=== PATIENT | female | born 1945 | race Caucasian/White ===

== ENCOUNTER 2016-10-31 | Outpatient (CLI) | payer MEDICARE, OTHER | END 2016-10-31 15:23 | disposition short-term general hospital (02) | DX: R53.83 Other fatigue (principal) | CPT/HCPCS: A0425; A0427 ==

== ENCOUNTER 2017-05-03 10:55 | Outpatient (CLI) | payer MEDICARE, OTHER | END 2017-05-03 10:56 | disposition short-term general hospital (02) | LOC: EMS 10:55 | PROVIDERS: ATTEND Surgery | DX: R53.83 Other fatigue (principal); R41.0 Disorientation, unspecified | CPT/HCPCS: A0425; A0429 ==

== ENCOUNTER 2017-06-03 08:00 | Outpatient (CLI) | payer MEDICARE, OTHER | END 2017-06-03 23:59 | disposition home or self-care (01) | LOC: LAB.R 08:00 | PROVIDERS: ATTEND Internal Medicine | DX: L97.811 Non-pressure chronic ulcer of other part of right lower leg limited to breakdown of skin (principal) | CPT/HCPCS: 87070; 87077; 87205 ==

== ENCOUNTER 2017-08-26 14:16 | Outpatient (CLI) | payer MEDICARE, OTHER | END 2017-08-26 14:17 | disposition home or self-care (01) | LOC: SC 14:16 | PROVIDERS: ATTEND Internal Medicine Pulmonary Disease | DX: G47.10 Hypersomnia, unspecified (principal); G47.8 Other sleep disorders; R06.83 Snoring | CPT/HCPCS: 99203; G0463; 99212 ==

== ENCOUNTER 2017-11-30 20:25 | Outpatient (CLI) | payer MEDICARE, OTHER | END 2017-11-30 20:26 | disposition home or self-care (01) | LOC: SC 20:25 | PROVIDERS: ATTEND Internal Medicine Pulmonary Disease | DX: G47.33 Obstructive sleep apnea (adult) (pediatric) (principal) | CPT/HCPCS: 95810 ==

== ENCOUNTER 2017-12-13 11:28 | Outpatient (CLI) | payer MEDICARE, OTHER | END 2017-12-13 11:29 | disposition short-term general hospital (02) | LOC: EMS 11:28 | PROVIDERS: ATTEND Surgery | DX: R53.1 Weakness (principal); W18.39XA Other fall on same level, initial encounter; Y92.002 Bathroom of unspecified non-institutional (private) residence as the place of occurrence of the external cause | CPT/HCPCS: A0425; A0429 ==

== ENCOUNTER 2017-12-30 14:34 | Outpatient (CLI) | payer MEDICARE, OTHER | END 2017-12-30 14:35 | disposition home or self-care (01) | LOC: SC 14:34 | PROVIDERS: ATTEND Nurse Practitioner Family | DX: G47.33 Obstructive sleep apnea (adult) (pediatric) (principal) | CPT/HCPCS: 99214; G0463; 99212 ==

== ENCOUNTER 2018-03-04 13:41 | Outpatient (CLI) | payer MEDICARE, OTHER | END 2018-03-04 13:42 | disposition home or self-care (01) | LOC: SC 13:41 | PROVIDERS: ATTEND Nurse Practitioner Family | DX: G47.33 Obstructive sleep apnea (adult) (pediatric) (principal) | CPT/HCPCS: 99214 ==

== ENCOUNTER 2018-03-24 12:12 | Outpatient (CLI) | payer MEDICARE, OTHER ==
--- NOTE | 2018-03-25 10:51 | Mammography Report ---
SCREENING LEFT MAMMOGRAM: 03/24/2018 HISTORY: Status post right mastectomy and chemotherapy. COMPARISON: 08/06/2016, 07/05/2014 and 06/17/2014. TECHNIQUE: Unilateral left CC and MLO projections. FINDINGS: There is scattered fibroglandular density. Extensive benign appearing calcifications as before. No new dominant mass, architectural distortion, skin thickening or interval change. IMPRESSION: NEGATIVE. BI-RADS CATEGORY 1 - NEGATIVE. SUGGEST RETURN TO ROUTINE SCREENING IN 12 MONTHS. STANDARD QUALIFYING STATEMENTS: 1. This examination was reviewed with the aid of Computer-Aided Detection (CAD). 2. A negative or benign imaging report should not delay biopsy if clinically suspicious findings are present. Consider surgical consultation if warranted. More than 5% of cancers are not identified by imaging. 3. Dense breasts may obscure an underlying neoplasm. TD: 03/25/2018 09:28
== END 2018-03-24 12:13 | disposition home or self-care (01) ==
LOC: DI 12:12
PROVIDERS: ATTEND Internal Medicine Hematology & Oncology
DX: Z12.31 Encounter for screening mammogram for malignant neoplasm of breast (principal); Z90.11 Acquired absence of right breast and nipple

== ENCOUNTER 2018-04-14 13:29 | Outpatient (CLI) | payer MEDICARE, OTHER | END 2018-04-14 13:30 | disposition home or self-care (01) | LOC: SC 13:29 | PROVIDERS: ATTEND Nurse Practitioner Family | DX: G47.33 Obstructive sleep apnea (adult) (pediatric) (principal) | CPT/HCPCS: 99214; G0463; 99212 ==

== ENCOUNTER 2018-05-12 13:15 | Outpatient (CLI) | payer MEDICARE, OTHER | END 2018-05-12 13:16 | disposition home or self-care (01) | LOC: SC 13:15 | PROVIDERS: ATTEND Nurse Practitioner Family | DX: G47.33 Obstructive sleep apnea (adult) (pediatric) (principal); R03.1 Nonspecific low blood-pressure reading | CPT/HCPCS: 99214; G0463; 99212 ==

== ENCOUNTER 2018-10-06 08:49 | Outpatient (CLI) | payer MEDICARE, OTHER | END 2018-10-06 08:50 | disposition short-term general hospital (02) | LOC: EMS 08:49 | PROVIDERS: ATTEND Surgery | DX: R53.1 Weakness (principal); R10.9 Unspecified abdominal pain | CPT/HCPCS: A0425; A0427 ==

== ENCOUNTER 2018-11-20 13:11 | Outpatient (CLI) | payer MEDICARE, OTHER ==
--- NOTE | 2018-11-24 08:50 | XRAY Report ---
Reason: PNA Procedure Date: 11/20/2018 Accession Number: [id number] / [id number] Procedure: XRN - Chest 2 View X-Ray CPT Code: 16427 FULL RESULT: EXAM: CHEST RADIOGRAPHY EXAM DATE: 11/20/2018 01:37 PM. CLINICAL HISTORY: Pneumonia. COMPARISON: Chest 2 views 08/09/2014. TECHNIQUE: 2 views. FINDINGS: Lungs/Pleura: No focal opacities evident. No pleural effusion. No pneumothorax. Normal volumes. Mediastinum: Heart and mediastinal contours are notable for aortic calcification. Median sternotomy wires and surgical clips consistent with CABG is seen. Other: None. IMPRESSION: No acute cardiopulmonary abnormality demonstrated. RADIA
== END 2018-11-20 13:12 | disposition home or self-care (01) ==
LOC: DI.N 13:11
PROVIDERS: ATTEND Internal Medicine
DX: J18.9 Pneumonia, unspecified organism (principal)
CPT/HCPCS: 71046

== ENCOUNTER 2020-02-02 15:34 | Outpatient (CLI) | payer MEDICARE, OTHER ==
--- NOTE | 2020-02-02 15:39 | CONSULTATION NOTE ---
Palliative Care Consultation - Referral Referring Provider: Dr. Ubaldo Sofia Time of Visit: [id number] Referral setting: Home Referral Reason: CHF/frequent UTIs/Debility/Advanced care planning - Information Sources Records reviewed: Previous records reviewed History/Review of Systems obtained from: Patient, Family (spouse, Channing ("GINGER") present) Exam limitations: No limitations - History of Present Illness Brief History of Present Illness: Is a 74-year-old woman who is seen in evaluation today for initial palliative care consultation within her home with her spouse, GINGER present. The patient has a significant cardiac history including coronary artery disease, congestive heart failure, and hypertension. She continues on HCTZ daily for diuretic maintenance and has torsemide as needed based on symptoms of fluid overload. The patient and her report that her swelling to her lower extremities has been greatly improved. She sometimes gets some swelling in the evenings. She and her spouse have been limiting salt in their diet and this has assisted with controlling her LE edema. 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 Both the patient her spouse reports that she has "bad knees." She has no pain at rest what will develop a dull ache in her knees during ambulation rating 4/10 which she reports is tolerable. She will take intermittently hydrocodone/acetaminophen if needed for severe pain which is something she has been on for "years." She previously had been on baclofen for muscle spasms for over 10 years but developed increasing weakness that resulted in the patient s eeking medical attention. Her spouse reports that prior to her admission she was falling asleep standing on her feet and had confusion like she was "walking in a coma." On an admission in 2018 she developed acute metabolic encephalopathy with acute kidney injury believed to be due to her longtime use of baclofen which was stopped. Presently the patient will use chlorzoxazone if needed for muscle spasms and this has now been a rare occurrence. The patient had also been on Cymbalta for several years and she has slowly been tapered off of the medication which was used for pain and depression symptoms. She has been off the medication for approximately 1 to 2 months and her spouse reports that she has been in better spirits and in better mood than she has been in the last 6 to 7 years. The patient is cracking jokes and appears to be happier. The patient has a longstanding history of diabetes mellitus. She takes Novolin 70/30 44 units twice daily her new novolin 4 times daily as needed based on a sliding scale. The patient is very fearful of taking too much insulin as she is afraid that she will not recognize having any lows. Both she and her have been working on their diet. The biggest concern presently is the patient's inability to stand for a long length of time due to weakness. She begins to feel like her legs are going to give out on her. She is able to ambulate short distances within the home. She feels like overall she has no energy. Her attributes this lack of energy and her being "worn out all day" to her recent urinary tract infections that were back to back. Her last urinary tract infection on 01/11 grew E. coli greater than 100,000 cfu/mL. Her spouse is extremely concerned that she will get a another urinary tract infection due to her hygiene practices. She is not able to provide adequate hygiene care especially to her helena-area due to her obesity, weakness, incontinence, and overall strength. Her spouse is looking for additi onal services to assist with this care. He has started the patient on cranberry supplementation for UTI prophylaxis. Of note, the patient had a recent elevated TSH with adjustments made to her levothyroxine with adequate response with lowering of her TSH but the patient did not notice any benefit in her overall fatigue from this adjustment. 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: Breast cancer (Right s/p chemotherapy and mastectomy) : reports: Incontinence, Other (CKD stage 3) Psych: reports: Depression Musculoskeletal: reports: Osteoarthritis Derm: reports: Herpes zoster (2017) - Past Surgical History General: reports: Cholecystectomy /RIVET TAPPING MACHINE OPERATOR: reports: Hysterectomy, Mastectomy (right) Cardiovascular: reports: Other (Watchman Mesh Filter in Heart; Triple bypass) HEENT: reports: Other (Thyroidectomy) - Substance History Use: Uses substance without health or social issues: NONE (Former smoker for 40 years) Social History - Living Situation Living arrangement: At home Living Situation: With spouse/s.o. Support System: The patient grew up in [place]. She and her have been for 56 years and had 3 children together. One son and 2 daughters. Their son is . They have 1 daughter who lives locally and across the street, [place], and their other daughter continues to reside in [place] and is a registered nurse. 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 She found great enjoyment and for filament in her role as a nurse. The patient and her relocated to [facility] approximately 5 years ago when the house across the street from the daughter became up for sale. AC, continues to work part-time but is presently on a leave of absence to care for the patient during this coronavirus pandemic. AC is the patient's primary caregiver and over the last 3 years the patient's needs have increased. 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 They presently have 1 dog twinkle who resides with them. Family History - Family History Family History: Mother: , Father: , Sister: Diabetes, Type 2 Family History Comment/Other: Sister has had amputation 2/2 DM type II Medications/Allergies - Medications Home Medications: Ambulatory Orders Medication Instructions Recorded Confirmed Aspirin [Aspirin EC] 81 mg PO DAILY 02/02/20 02/02/20 Atorvastatin Calcium 40 mg PO QPM 02/02/20 02/02/20 Calcium Carbonate/Vitamin D3 1 cap PO BID 02/02/20 02/02/20 [Calcium 600-Vit D3 500 Softgel] Carvedilol [Coreg] 1 tab PO BID 02/02/20 02/02/20 Chlorzoxazone 250 - 500 mg PO TID PRN 02/02/20 02/02/20 Clopidogrel [Plavix] 75 mg PO DAILY 02/02/20 02/02/20 Complex Super B 1 cap PO DAILY 02/02/20 Cranberry 500 mg PO BID 02/02/20 02/02/20 Dmannose 2 g PO DAILY 02/02/20 Docusate Sodium 100 mg PO DAILY 02/02/20 02/02/20 Ferrous Sulfate 325 mg PO BID 02/02/20 02/02/20 Fluticasone [Flonase] 1 spray SPENCER BID 02/02/20 02/02/20 HYDROcodone/ACET 10/325 [Seale 10 1 tab PO Q6H PRN 02/02/20 02/02/20 mg/325 mg] Insulin NPH Hum/Reg Insulin Hm 44 units SQ BID 02/02/20 02/02/20 [Novolin 70-30 Flexpen] Insulin Regular Human [NovoLIN R] PRN MDD per SSI 02/02/20 Isosorbide Mononitrate ER [Imdur] 30 mg PO DAILY 02/02/20 02/02/20 Levothyroxine Sodium 2 tab PO .MONTUESWEDFRISAT 02/02/20 02/02/20 Levothyroxine [Synthroid] 3 tab PO .THURSSUNDAY 02/02/20 02/02/20 Losartan Potassium 25 mg PO DAILY 02/02/20 02/02/20 Nitroglycerin [Nitrostat] PRN 02/02/20 [place] 3 Fish Oil 540 mg PO BID 02/02/20 Ondansetron HCl [Zofran] 4 mg PO Q6H PRN 02/02/20 02/02/20 Oxybutynin Chloride 5 mg PO BID 02/02/20 02/02/20 Pantoprazole [Protonix] 40 mg PO BID 02/02/20 02/02/20 Potassium Chloride [Klor-Con 10] 1 tab PO BID 02/02/20 02/02/20 Ropinirole HCl 0.5 mg PO BID 02/02/20 02/02/20 Torsemide 20 mg PO DAILY PRN 02/02/20 02/02/20 Vitamin E 400 unit PO DAILY 02/02/20 02/02/20 diphenhydrAMINE [Benadryl] 25 mg PO DAILY PRN 02/02/20 02/02/20 hydroCHLOROthiazide 25 mg PO BID 02/02/20 02/02/20 [Hydrochlorothiazide] polyethylene glycoL 3350 [Miralax] 17 g PO DAILY PRN 02/02/20 02/02/20 - Allergies Allergies/Adverse Reactions: Allergies Allergy/AdvReac Type Severity Reaction Status Date / Time demeclocycline AdvReac Nausea Unverified 02/02/20 18:11 meperidine HCl * AdvReac Nausea Unverified 02/02/20 18:11 [From Demerol] Review of Systems - Constitutional Constitutional: reports: Fatigue, Weight stable. denies: Fever - Eyes Eyes: reports: Corrective lenses - Ears, Nose & Throat Ears, Nose & Throat: denies: Hearing loss - Cardiovascular Cardiovascular: denies: Palpitations, Chest pain, Lightheadedness - Respiratory Respiratory: denies: Cough, Wheezing, SOB at rest - Gastrointestinal Gastrointestinal: denies: Abdominal pain, Constipation, Diarrhea - Genitourinary Genitourinary: reports: Incontinence. denies: Dysuria - Musculoskeletal Musculoskeletal: reports: Muscle weakness, Joint pain, Assistive devices - Integumentary Integumentary: denies: Other (skin breakdown) - Neurological Neurological: reports: General weakness. denies: Headache, Memory problems - Psychiatric Psychiatric: denies: Depression - Endocrine Endocrine: reports: Diabetes type 2, Hypothyroidism - Hematologic/Lymphatic Hematologic/Lymphatic: reports: Recurrent infections (UTI) - All Other Systems All Other Systems: reports: Reviewed and negative Physical Exam - Vital Signs Temperature: 97.7 C Pulse Rate: 61 O2 Saturation: 98 (on RA at rest) Blood Pressure: 115/58 (left wrist cuff) - Physical Exam General Appearance: positive: No acute distress, Alert, Other (well groomed sitting in lift recliner) Eyes Bilateral: positive: Other (+corrective lenses) ENT: positive: No signs of dehydration Neck: positive: Trachea midline Cardiovascular: positive: Regular rate & rhythm, No murmur. negative: JVD present Respiratory: positive: No respiratory distress, Breath sounds nml, Other (Good air movement throughout). negative: Wheezes Abdomen: positive: Non-tender, Soft, Nml bowel sounds, Obese Skin: positive: Other (hyperpigmentation to shins of BLE; trace varicose veins to bilateral feet) Extremities: positive: Full ROM, Pedal edema (trace pitting edema to b/l ankles) , Other (RLE stregnth 4/5; LLE strength 4-/5) Neurologic/Psychiatric: positive: Oriented x3, Mood/affect nml. negative: Unintelligible speech Palliative Care - POLST Patient has POLST: Yes POLST Status: Full Code Pain: Pain unchanged (to bilateral knees due to arthritis that is tolerable to the patient with movement. If increased pain will take hydrocodone/acetaminophen for her pain) Tiredness/Fatigue: Moderate (4-6) Nausea: None Anorexia: None Dyspnea: None Depression: None Anxiety: None Sleep: Sleeps well Constipation: No, Managed Performance Status: The patient is requiring increased assistance and care from her . She is ambulatory with a Rollator but is unable to stand for long periods of time due to lower extremity weakness and fatigue. There has been no change in her appetite and she grazes throughout the day. She is incontinent of urine and on able to provide adequate helena-care. She remains continent of bowel. No coughing during meals. No recent falls. PPS 60% - Palliative Care Discussion: The patient has been requiring increased caregiving needs over the last 3 years with her as her primary caregiver. Her is reporting increased difficulty overseeing all of her needs and is looking for additional assistance within the home. The patient typically does not leave her home except for anything other than medical appointments. Over the last few months she has had increased fatigue and reported lower extremity weakness where she feels like her legs are going to give out on her. She is still able to ambulate short distances within the home. Her is presently on a leave of absence from work to care for her. The patient's is demonstrating more concern over the patient's increased need for assistance and functional decline. He is looking for the patient to return to her baseline status with additional help and assistance. The patient herself when asked regarding any health concerns reported none at the onset of this evaluation. She was not invested When her was reporting recent health status changes demonstrating poor insight into her present health circumstances. Her describes her as being "hard headed" and the patient was very quick to agree. As the patient herself denied any health concerns it was difficult to explore goals of care during this visit. Reviewed POLST with the patient and her . The patient herself wishes to Have CPR performed with full treatment interventions, antibiotics to prolong life and a trial of tube feeding with a time to be determined. Overall, this POLST that was updated today was similar in choice selections to her prior one made in 2017. The patient herself does not express any fears regarding her health. In regards to end-of-life both she and her report that they have spoken at length in regards to their wishes with each other as well as with her daughters. She does not have a living well nor a designated healthcare agent. At this time she would designate her , a see as her healthcare agent. 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 Impression and Recommendations - Palliative Care Impression: This is a 74-year-old woman who is having increased lower extremity weakness, overall fatigue, in the setting of significant cardiac history. She is requiring increased caregiving needs for herPersonal hygiene and her is having increased difficulty caring for her within their home. She recently had 2 urinary tract infections that were back to back that correlates with the timing of the patient's increased weakness. Palliative care to continue to provide support, exploration of goals of care, and advanced care planning. Recommendations/Counseling Done: 1. Osteoarthritis. Per patient report noted to bilateral knees. No obvious deformities. Remote history of an accident. Patient with in increased lower extremity strength With decreased physical endurance that she would benefit from physical therapy for lower extremity strengthening, improvement of musculature, and fall prevention. She has pain with movement which is tolerable and if significant she will take as needed hydrocodone/acetaminophen for pain. Fall precautions. 2. History of UTI. Patient had back to back urinary tract infections. Her last UTI grew E. coli that was isolated from the urine culture. May continue to take cranberry supplementation for UTI prophylaxis. Initiate d-mannose 2 g daily for UTI prophylaxis as it has demonstrated some activity against E. coli with this reviewed with both patient and spouse with side effects reviewed and questions answered and addressed. Encourage oral hydration. 3. Congestive heart failure. Minimal edema noted on examination today to lower extremities. Lungs are clear on examination without evidence of fluid overload. Weight recently has been stable. Continue low sodium diet. Continue hydrochlorothiazide routinely for diuresis with potassium chloride supplementation. Patient has torsemide 20 mg tablets to be administered as needed for edema. Continue to monitor weight trends. 4. Fatigue. Unclear underlying cause. Likely multifactorial. Patient's levothyroxine was recently adjusted and unlikely a cause for her continued fatigue. Patient is sedentary. 5. Caregiver burden. The patient's , AC, is her sole caregiver and he is having increased difficulty caring for her hygiene needs. As the patient would benefit from physical therapy services will also request a home health aide to come into the home to assist with bathing. The spouse requests that home health services come on Tuesdays as this is when he will be off of work moving forward. Discussed if continued need for caregiving assistance within the home after home health services are completed the patient and spouse should look into private caregiving and provided a [place]. We will also request that home health/palliative care probation worker reach out to the spouse to assist with caregiving needs. 6.Advance care planning. The patient herself does not demonstrate full insight into her complex medical comorbidities. She does not perceive herself with symptom burden. The patient also does not offer any acute concerns regarding her health which is in contrast to her 's concerns regarding her weakness and increased caregiving needs. Her is hopeful that the patient will return to her baseline strength but if not, then he is open to caregivers to come into the home to provide assistance.Introduction to patient regarding goals of care. POLST reviewed and updated with patient's desire for CPR and Full treatment. Recommended appointing Health Care Agents and setting up a living will. Counseling provided on continuum of palliative care and continued palliative care services with both the patient and spouse but both declined additional needs at this time. Patient and spouse are aware that palliative care is available if sudden change in condition or needs further support and assistance in advanced care planning. Palliative care available for problem solving as needed. FACE to FACE: It would be a taxing and considerable effort for the patient to leave her home due to her lower extremity weakness from her osteoarthritis as well as due to her high risk of mortality if she contracts COVID-19 and therefore remaining in the home is medically necessary. Home Health PT for lower extremity strengthening, energy conservation and build up of endurance, passive ROM exercises to maintain musculature and equipment recommendations. Request home health aide for bathing for personal care and skin care. Time Spent: Total time spent 90 minutes with greater than 50% of this spent in counseling and coordination of care with the patient and spouse; review of palliative care philosophy; home health services; review of pain and symptom management and anticipatory guidance. disclaimer: The chart note was formulated using voice recognition technology and unfortunately sound alike errors may occur.
== END 2020-02-02 15:35 | disposition home or self-care (01) ==
LOC: PC 15:34
PROVIDERS: ATTEND Nurse Practitioner Family
DX: Z51.5 Encounter for palliative care (principal); E11.22 Type 2 diabetes mellitus with diabetic chronic kidney disease; I13.0 Hypertensive heart and chronic kidney disease with heart failure and stage 1 through stage 4 chronic kidney disease, or unspecified chronic kidney disease; N18.3 Chronic kidney disease, stage 3 (moderate); R53.1 Weakness; R53.83 Other fatigue; M17.0 Bilateral primary osteoarthritis of knee; R32 Unspecified urinary incontinence; E66.9 Obesity, unspecified; I25.10 Atherosclerotic heart disease of native coronary artery without angina pectoris; I48.0 Paroxysmal atrial fibrillation; E89.0 Postprocedural hypothyroidism; Z79.899 Other long term (current) drug therapy; Z79.02 Long term (current) use of antithrombotics/antiplatelets; Z79.4 Long term (current) use of insulin; Z87.440 Personal history of urinary (tract) infections; Z79.82 Long term (current) use of aspirin; Z87.891 Personal history of nicotine dependence
CPT/HCPCS: 99345

== ENCOUNTER 2020-07-04 10:37 | Outpatient (CLI) | payer MEDICARE, OTHER ==
--- NOTE | 2020-07-06 12:04 | Mammography Report ---
UNILATERAL LEFT DIGITAL SCREENING MAMMOGRAM: 07/04/2020 CLINICAL: Routine screening. Personal history of right breast cancer. Comparison is made to exams dated: 03/24/2018 mammogram, 08/06/2016 mammogram, 06/17/2014 mammogram, an d 07/05/2014 mammogram - [facility]. There are scattered fibroglandular elements in left breast. There is a 0.5 cm oval asymmetry in the left breast posterior depth lateral region seen on the cranio caudal view only. This is more prominent. Benign calcifications. No other significant masses or calcifications are seen in the breast. IMPRESSION: INCOMPLETE: NEEDS ADDITIONAL IMAGING EVALUATION The 0.5 cm oval asymmetry in the left breast is indeterminate. Additional views with possible ultrasound are recommended. This exam was interpreted at Station ID: [id number]. NOTE: For mammograms, a report in lay terms will be sent to the patient. Approximately 15% of breast malignancies will not be visualized mammographically. In the management of a palpable breast mass, a negative mammogram must not discourage biopsy of a clinically suspicious lesion. Electronically Signed By: Isreal Callaway M.D. slc/:07/04/2020 17:52:12 ACR BI-RADS Category 0: Incomplete 3340F PARENCHYMAL PATTERN: (A) - The breast(s) demonstrate(s) scattered fibroglandular densities. BI-RADS CATEGORY: (0) - 0 Mammo and [place] [id number] Immediate follow-up LATERALITY: (B)
== END 2020-07-04 10:38 | disposition home or self-care (01) ==
LOC: DI.N 10:37
PROVIDERS: ATTEND Internal Medicine
DX: Z12.31 Encounter for screening mammogram for malignant neoplasm of breast (principal); Z85.3 Personal history of malignant neoplasm of breast

== ENCOUNTER 2020-08-15 14:50 | Outpatient (CLI) | payer MEDICARE, OTHER ==
--- NOTE | 2020-08-17 15:34 | Mammography Report ---
UNILATERAL LEFT DIGITAL DIAGNOSTIC MAMMOGRAM 3D/2D: 08/15/2020 CLINICAL: Patient returns today to evaluate a focal asymmetry in the left breast. Comparison is made to exams dated: 07/04/2020 mammogram, 03/24/2018 mammogram, 08/06/2016 mammogram, mammogram, and 06/17/2014 mammogram - [facility]. There are scattered fibro glandular elements in left breast. The previously described 0.5 cm oval asymmetry in the left breast posterior depth lateral region seen on the craniocaudal view only is not visualized on today's exam secondary to patient's inability to be positioned for targeted evaluation of the finding by mammography. There are stable calcifications. IMPRESSION: INCOMPLETE: NEEDS ADDITIONAL IMAGING EVALUATION An ultrasound is recommended for further evaluation and is scheduled to immediately follow this study . This exam was interpreted at Station ID: [id number]. NOTE: For mammograms, a report in lay terms will be sent to the patient. Approximately 15% of breast malignancies will not be visualized mammographically. In the management of a palpable breast mass, a negative mammogram must not discourage biopsy of a clinically suspicious lesion. Electronically Signed By: Talat Vergara M.D. aty/:08/16/2020 14:58:45 ACR BI-RADS Category 0: Incomplete 3340F PARENCHYMAL PATTERN: (A) - The breast(s) demonstrate(s) scattered fibroglandular densities. BI-RADS CATEGORY: (0) - 0 Ultrasound [id number] Immediate follow-up LATERALITY: (L)
--- NOTE | 2020-08-17 15:34 | Ultrasound Report ---
LIMITED ULTRASOUND OF LEFT BREAST: 08/15/2020 CLINICAL: Patient returns today to evaluate asymmetry in left breast. Comparison is made to exams dated: 08/15/2020 mammogram, 07/04/2020 mammogram, 03/24/2018 mammogram, mammogram, 07/05/2014 mammogram, and 06/17/2014 mammogram - [facility]. Real-time ultrasound of the left breast outer aspect was performed. Corea scale images of the real-t lyndsay examination were reviewed. No significant abnormalities were seen sonographically in the entire outer half of the left breast. No sonographic correlates visualized for the oval asymmetry that may represent a lymph node. Overall, no suspicious sonographic findings. IMPRESSION: PROBABLY BENIGN No sonographic abnormalities were visualized in the lateral half of the left breast to correlate with oval asymmetry that resembled a lymph node or cyst. The mammographic evaluation was not able to be c ompleted today secondary to patient discomfort and inability to be positioned for imaging. This is a probably benign finding. A follow-up left mammogram and an ultrasound in 6 months is recommended to demonstrate stability. Findings and recommendations were conveyed to the patient during today's evaluation. This exam was interpreted at Station ID: [id number]. Electronically Signed By: Talat Vergara M.D. aty/:08/15/2020 18:57:00 Ultrasound BI-RADS: 3 Probably benign BI-RADS CATEGORY: (3) - 3 Mammo and US [id number] 6 month follow-up LATERALITY: (L)
== END 2020-08-15 14:51 | disposition home or self-care (01) ==
LOC: DI 14:50
PROVIDERS: ATTEND Internal Medicine Hematology & Oncology
DX: N64.89 Other specified disorders of breast (principal); Z85.3 Personal history of malignant neoplasm of breast
CPT/HCPCS: 76642

== ENCOUNTER 2020-11-28 10:49 | Outpatient (CLI) | payer MEDICARE, OTHER ==
--- NOTE | 2020-11-28 14:09 | Ultrasound Report ---
PROCEDURE: Retroperitoneal INDICATIONS: KIDNEY DYSFUNCTION TECHNIQUE: Real-time scanning was performed of the retroperitoneal organs, with image documentation. COMPARISON: None. FINDINGS: Study is limited secondary to patient inability to be positioned for optimal imaging. Kidneys: Kidneys are normal in size. Right kidney measures 11.8 cm long; left kidney measures 10.1 cm long. Right renal cortical thickness is 1.3 cm; left renal cortical thickness is 1.2 cm. No miguel d masses, hydronephrosis, or nephrolithiasis. Within the superior aspect of the right kidney, there is a 1.6 x 1.2 x 1.7 cm hypoechoic focus without posterior acoustic enhancement. Suggestion of minima l posterior shadowing versus artifact. No internal vascularity. Similar finding in the left kidney in volving the mid pole measuring approximately 1.8 cm. Urinary bladder: Prevoid urinary bladder volume measured 96.4 mL. Bilateral ureteral jets were visual ized. Visualized portion of the urinary bladder wall appears unremarkable. Patient was unable to void in order to obtain post void residual volume. Miscellaneous: No free abdominal fluid. IMPRESSION: 1. Bilateral kidneys without acute sonographic abnormalities. No evidence for obstructive uropathy. 2. Limited visualization of the bilateral kidneys secondary to limited patient mobility to obtain opt imal imaging. Possible 1.7 cm hypoechoic lesion in the mid-superior aspect of right kidney as well as a 1.8 cm hypoechoic lesion within the left midpole. These may represent renal cysts versus solid mas s versus artifact from prominent dromedary hump. Consider further evaluation with MRI or CT (renal ma ss protocol). Reviewed by: Talat Vergara MD on 11/28/2020 2:08 PM PST Approved by: Talat Vergara MD on 11/28/2020 2:08 PM PST Station ID: [id number]
== END 2020-11-28 10:50 | disposition home or self-care (01) ==
LOC: DI 10:49
PROVIDERS: ATTEND Internal Medicine Nephrology
DX: N17.9 Acute kidney failure, unspecified (principal)

== ENCOUNTER 2021-10-31 11:56 | Outpatient (CLI) | payer MEDICARE | END 2021-10-31 11:57 | disposition short-term general hospital (02) | LOC: EMS 11:56 | DX: R56.9 Unspecified convulsions (principal) | CPT/HCPCS: A0425; A0429 ==

== ENCOUNTER 2022-02-07 13:19 | Outpatient (CLI) | payer MEDICARE ==
--- NOTE | 2022-02-07 18:33 | XRAY Report ---
PROCEDURE: Chest 2 View X-Ray INDICATIONS: CORONARY ARTERY DISEASE INVOLVING NOTTAWASEPPI POTAWATOMI HEART TECHNIQUE: 2 view(s) of the chest. COMPARISON: 11/20/2018 FINDINGS: Surgical changes and devices: Median sternotomy wires are intact. Stable postsurgical changes from pr ior revascularization procedure. Lungs and pleura: No pleural effusions or pneumothorax. Lungs are clear. Mediastinum: Mediastinal contours are normal. Heart size is normal. Bones and chest wall: No suspicious bony abnormalities. Soft tissues appear unremarkable. IMPRESSION: Stable examination of the chest without acute cardiopulmonary abnormalities or focal air space disease. Reviewed by: Talat Vergara MD on 02/07/2022 6:32 PM PDT Approved by: Talat Vergara MD on 02/07/2022 6:32 PM PDT Station ID: [id number]
== END 2022-02-07 13:20 | disposition home or self-care (01) ==
LOC: DI 13:19
PROVIDERS: ATTEND Internal Medicine Cardiovascular Disease
DX: I25.10 Atherosclerotic heart disease of native coronary artery without angina pectoris (principal)

== ENCOUNTER 2022-03-19 09:58 | Outpatient (CLI) | payer MEDICARE | END 2022-03-19 09:59 | disposition short-term general hospital (02) | LOC: EMS 09:58 | DX: R56.9 Unspecified convulsions (principal) | CPT/HCPCS: A0425; A0427 ==

== ENCOUNTER → 2022-09-26 | Outpatient (CLI) | payer MEDICARE | END | disposition short-term general hospital (02) | LOC: EMS 09-25 14:18 | DX: R56.9 Unspecified convulsions (principal); R53.1 Weakness; R00.0 Tachycardia, unspecified; I10 Essential (primary) hypertension | CPT/HCPCS: A0425; A0427 ==

== ENCOUNTER 2024-04-25 12:58 | Outpatient (CLI) | payer MEDICARE | END 2024-04-25 12:59 | disposition critical access hospital (66) | LOC: EMS 12:58 | DX: R53.1 Weakness (principal); R47.81 Slurred speech; R29.810 Facial weakness; R46.4 Slowness and poor responsiveness | CPT/HCPCS: A0425; A0429 ==

== ENCOUNTER 2024-04-25 13:19 | Emergency (ER) | payer MEDICARE ==
--- NOTE | 2024-04-25 13:26 | ED Physician Documentation ---
PD HPI FOCAL NEURO - Stated complaint Stated Complaint: CODE STROKE - Chief complaint Chief Complaint: Neuro - History obtained from History obtained from: Patient, EMS - History of Present Illness Timing - onset: How many minutes ago (45) Timing - duration: Minutes (45) Timing - details: Abrupt onset Severity of deficit: Severe Weakness: Face, Arm, Hand, Leg, Foot, Left Associated symptoms: No: Headache, Nausea / vomiting, Seizure, Syncope, Fall, Head injury, Chest pain, Neck pain, Back pain - Additional information Additional information: 79-year-old female presents to the emergency department with EMS. They state that approximately 45 minutes prior to arrival was noted by her to have left-sided facial droop, left arm weakness and left leg weakness. 911 was called. Has not had similar symptoms previously. Has a history of seizures. No falls. No trauma reported. EMS states that the had walked out of the room where they were watching TV and states that she was normal. He had gotten something from the kitchen and came back. Review of Systems Unable to obtain: AMS PD PAST MEDICAL HISTORY - Past Medical History Cardiovascular: Hypertension, High cholesterol, Coronary artery disease, Atrial fibrillation (Paroxysmal), Other (Chronic Diastolic heart failure) Respiratory: Sleep apnea Neuro: None Endocrine/Autoimmune: Type 2 diabetes, HyPOthyroidism GI: GI bleed, Other (cancer of gallbladder) CELL COVERER: Breast cancer (Right s/p chemotherapy and mastectomy) : Incontinence, Other (CKD stage 3) Psych: Depression Musculoskeletal: Osteoarthritis Derm: Herpes zoster (2017) - Past Surgical History General: Cholecystectomy /CELL COVERER: Hysterectomy, Mastectomy (right) Cardiovascular: Other (Watchman Mesh Filter in Heart; Triple bypass) HEENT: Other (Thyroidectomy) - Present Medications Home Medications: Ambulatory Orders Medication Instructions Recorded Confirmed Aspirin [Aspirin EC] 81 mg PO DAILY 02/02/20 07/18/20 Atorvastatin Calcium 40 mg PO QPM 02/02/20 07/18/20 Calcium Carbonate/Vitamin D3 1 cap PO BID 02/02/20 07/18/20 [Calcium 600-Vit D3 500 Softgel] Chlorzoxazone 250 - 500 mg PO TID PRN 02/02/20 07/18/20 Clopidogrel [Plavix] 75 mg PO DAILY 02/02/20 07/18/20 Complex Super B 1 cap PO DAILY 02/02/20 07/18/20 Cranberry 500 mg PO BID 02/02/20 07/18/20 Dmannose 2 g PO DAILY 02/02/20 07/18/20 Docusate Sodium 100 mg PO DAILY 02/02/20 07/18/20 Ferrous Sulfate 325 mg PO BID 02/02/20 07/18/20 Fluticasone [Flonase] 1 spray SPENCER BID 02/02/20 07/18/20 HYDROcodone/ACET 10/325 [[place] 10 1 tab PO Q6H PRN 02/02/20 07/18/20 mg/325 mg] Insulin NPH Hum/Reg Insulin Hm 44 units SQ BID 02/02/20 07/18/20 [Novolin 70-30 Flexpen] Insulin Regular Human [NovoLIN R] PRN MDD per SSI 02/02/20 Isosorbide Mononitrate ER [Imdur] 30 mg PO DAILY 02/02/20 07/18/20 Levothyroxine Sodium 2 tab PO .MONTUESWEDFRISAT 02/02/20 07/18/20 Levothyroxine [Synthroid] 3 tab PO .THURSSUNDAY 02/02/20 07/18/20 Losartan Potassium 25 mg PO DAILY 02/02/20 07/18/20 Nitroglycerin [Nitrostat] PRN 02/02/20 [place] 3 Fish Oil 540 mg PO BID 02/02/20 07/18/20 Oxybutynin Chloride 5 mg PO BID 02/02/20 07/18/20 Pantoprazole [Protonix] 40 mg PO BID 02/02/20 07/18/20 Potassium Chloride [Klor-Con 10] 1 tab PO BID 02/02/20 07/18/20 Ropinirole HCl 0.5 mg PO BID 02/02/20 07/18/20 Torsemide 20 mg PO DAILY PRN 02/02/20 07/18/20 Vitamin E 400 unit PO DAILY 02/02/20 07/18/20 carvediloL [Coreg] 1 tab PO BID 02/02/20 07/18/20 diphenhydrAMINE [Benadryl] 25 mg PO DAILY PRN 02/02/20 07/18/20 hydroCHLOROthiazide 25 mg PO BID 02/02/20 07/18/20 [Hydrochlorothiazide] ondansetron HCL [Zofran] 4 mg PO Q6H PRN 02/02/20 07/18/20 polyethylene glycoL 3350 [Miralax] 17 g PO DAILY PRN 02/02/20 07/18/20 - Allergies Allergies/Adverse Reactions: Allergies Allergy/AdvReac Type Severity Reaction Status Date / Time demeclocycline AdvReac Nausea Verified 04/25/24 13:43 meperidine HCl * AdvReac Nausea Verified 04/25/24 13:43 [From Demerol] - POLST Patient has POLST: Yes PD ED PE NORMAL - Vitals Vital signs reviewed: Yes - General General: No acute distress, Well developed/nourished, Other (alert, minimally verbal) - HEENT HEENT: PERRL, Moist mucous membranes - Neck Neck: Supple, no meningeal sign - Cardiac Cardiac: RRR - Respiratory Respiratory: No respiratory distress, Clear bilaterally - Abdomen Abdomen: Soft, Non tender, Non distended - Derm Derm: Warm and dry - Extremities Extremities: No edema - Neuro Neuro: Other (alert) Eye Opening: Spontaneous Motor: Obeys Commands Verbal: Incomprehensible GCS Score: 12 NIHSS - Time Time: 13:20 - Level of Consciousness Level of consciousness: (0) Alert, Keenly responsive LOC Questions: (2) Answers neither correct LOC Commands: (1) Performs one correctly - Gaze Best Gaze: (0) Normal - Visual Visual: (0) No loss - Facial Palsy Facial Palsy: (3) Complete paralysis - Motor Arms (both separate) Motor Arm (right): (0) No drift Motor Arm (left): (4) No movement - Motor Legs (both separate) Motor Leg (right): (0) No drift Motor Leg (left): (4) No movement - Limb Ataxia Limb Ataxia: (2) Present in 2 limbs - Sensory Sensory: (2) Gzootj-as-vyvwq loss - Best Language Best Language: (2) Severe aphasia - Dysarthria Dysarthria: (2) Severe dysarthria - Extinction and Inattention (formally neg Extinction and inattention: (0) No abnormality - Total Score/Results Total Score/Result: 22 Results - Vitals Vitals: Vital Signs - 24 hr 04/25/24 04/25/24 04/25/24 13:25 13:55 13:59 Temperature 36.5 C Heart Rate 86 85 87 Respiratory 16 22 16 Rate Blood Pressure 144/76 H 174/79 H 170/87 H O2 Saturation 98 97 97 04/25/24 04/25/24 04/25/24 14:14 14:15 14:30 Temperature Heart Rate 99 78 93 Respiratory 25 H 23 22 Rate Blood Pressure 180/80 H 174/79 H 166/90 H O2 Saturation 97 98 98 04/25/24 04/25/24 04/25/24 14:45 14:53 15:30 Temperature Heart Rate 99 89 90 Respiratory 25 H 30 H 19 Rate Blood Pressure 208/77 H 164/92 H 179/84 H O2 Saturation 97 97 98 04/25/24 16:00 Temperature Heart Rate 99 Respiratory 18 Rate Blood Pressure 178/95 H O2 Saturation 99 Oxygen O2 Source Room air - EKG (time done) 1341 EKG releavant findings:: EKG personally interpreted by author of this note. Relevant findings are: Rate: Rate (enter#) (87) Rhythm: Atrial fibrillation Panther Burn: Normal QRS: Normal Ischemia: Normal ST segments - Labs Labs: Laboratory Tests 04/25/24 04/25/24 04/25/24 13:20 13:20 13:20 WBC 7.9 RBC 3.26 L Hgb 9.9 L Hct 32.2 L MCV 98.8 MCH 30.4 MCHC 30.7 L RDW 13.5 Plt Count 223 MPV 9.9 Neut # (Auto) 5.7 Lymph # (Auto) 1.0 L [place] # (Auto) 0.6 Eos # (Auto) 0.5 Baso # (Auto) 0.0 Absolute Nucleated RBC 0.00 Nucleated RBC % 0.0 PT 14.6 H INR 1.4 H APTT 40.6 H Sodium 140 Potassium 4.0 Chloride 108 Carbon Dioxide 23 Anion Gap 9.0 BUN 44 H Creatinine 2.2 H Estimated GFR (MDRD) 22 L Glucose 247 H Calcium 8.7 Total Bilirubin 0.5 AST 17 ALT 13 Alkaline Phosphatase 89 Total Protein 5.7 L Albumin 3.5 Globulin 2.2 Albumin/Globulin Ratio 1.6 Lipase 14 - Rads (name of study) Head CT Relevant Findings:: Final report received, See rad report CT angiogram head and neck Relevant Findings:: Final report received, See rad report CT chest without Relevant Findings:: Final report received, See rad report PD Medical Decision Making - ED course Complexity details: reviewed results, re-evaluated patient, considered differential, d/w patient, d/w family, d/w market research consultant ED course: Patient's arrived in the emergency department at approximately 2 PM. I discussed the case with him. He states that the last time he saw her normal was around [address] head shows 2 areas of old infarcts. No evidence of acute intracranial hemorrhage. CT angiogram head and neck shows a pulmonary embolus in the left main pulmonary artery. Patient's states that she has had no chest pain or shortness of breath. Patient was activated as a code stroke. Telestroke was consulted. They evaluated the patient,, and scented the patient and her for TNK. TNK was ordered. The patient is excepted by Dr. Muñiz to [facility] neuro ICU. Patient was sent via helicopter. This document was made in part using voice recognition software. While efforts are made to proofread this document, sound alike and grammatical errors may occur. Departure - Departure Disposition: 02 Transfer Acute Care Hosp Clinical Impression: Cerebrovascular accident (CVA) Qualifiers: CVA mechanism: unspecified Qualified Code(s): I63.9 - Cerebral infarction, unspecified Pulmonary embolism Qualifiers: Pulmonary embolism type: unspecified Chronicity: acute Acute cor pulmonale presence: unspecified Qualified Code(s): I26.99 - Other pulmonary embolism without acute cor pulmonale Condition: Stable Forms: PCP List Discharge Date/Time: 04/25/24 16:25
[2024-04-25 13:29] LABS: BASOPHILS % (AUTO) 0.4 %; EOSINOPHILS # (AUTO) 0.5 10^3/uL (0.0-0.7); EOSINOPHILS % (AUTO) 5.9 %; HCT - HEMATOCRIT 32.2 % (37.0-47.0); HGB - HEMOGLOBIN 9.9 g/dL (12.0-16.0); LYMPHOCYTES % (AUTO) 12.9 %; MEAN CORPUSCULAR HEMOGLOBIN 30.4 pg (27.0-31.0); MEAN CORPUSCULAR HGB CONC 30.7 g/dL (32.0-36.0); MEAN CORPUSCULAR VOLUME 98.8 fL (81.0-99.0); MEAN PLATELET VOLUME 9.9 fL (7.9-10.8); MONOCYTES # (AUTO) 0.6 10^3/uL (0.0-1.0); MONOCYTES % (AUTO) 8.1 %; NEUTROPHILS # (AUTO) 5.7 10^3/uL (1.5-6.6); NEUTROPHILS % (AUTO) 72.3 %; PLT - PLATELET COUNT 223 10^3/uL (130-450); RED BLOOD COUNT 3.26 10^6/uL (4.20-5.40); RED CELL DISTRIBUTION WIDTH 13.5 % (12.0-15.0); WHITE BLOOD COUNT 7.9 x10^3/uL (4.8-10.8)
[2024-04-25 13:38] LABS: PARTIAL THROMBOPLASTIN TIME 40.6 secs (24.9-33.3)
[2024-04-25 13:42] LABS: INR 1.4 (0.8-1.2); PT - PROTHROMBIN TIME 14.6 secs (9.9-12.6)
[2024-04-25 13:44] LABS: ALBUMIN 3.5 g/dL (3.2-5.5); ALBUMIN/GLOBULIN RATIO 1.6 (1.0-2.2); BILIRUBIN,TOTAL 0.5 mg/dL (0.2-1.0); CALCIUM 8.7 mg/dL (8.5-10.3); CREATININE 2.2 mg/dL (0.6-1.3); TOTAL PROTEIN 5.7 g/dL (6.4-8.9)
--- NOTE | 2024-04-25 13:53 | CT Report ---
PROCEDURE: Head W/O Stroke Protocol INDICATIONS: L sided weakness TECHNIQUE: Noncontrast 4.5 mm thick angled axial sections acquired from the foramen magnum to the vertex, with c oronal reformats. For radiation dose reduction, the following was used: automated exposure control, adjustment of mA and/or kV according to patient size. COMPARISON: CTA head and neck 04/25/2024, CTA head 10/08/2016 FINDINGS: Image quality: Excellent. The ventricular system and cortical sulci demonstrate atrophy, consistent for patient's stated age. There are areas of hypodensity in the periventricular and subcortical white matter. There is no acut e intra or extra-axial fluid collection. No acute hemorrhage, mass lesion or midline shift. Left pa rietal occipital infarction with encephalomalacia and subsequent ex vacuo dilation of the adjacent ve ntricle. Second focus of decreased density is present in the medial right parietal occipital lobe, pr esent 2015 but more prominent. Brainstem is unremarkable. Globes are symmetrical. Sinuses are aerated. Osseous structures are intact. IMPRESSION: 1. Focus of low-attenuation within the medial right parietal occipital lobe consistent with old infar ction. Small area of superimposed subacute ischemia cannot be definitively excluded.. 2. Moderate to severe atrophy and chronic microvascular ischemic changes. The above findings were discussed with Dr. Clay Christine on 04/25/2024 at 1:46 PM This study fulfills neurological imaging criteria for inclusion or exclusion of acute stroke therapie s based on available published neurological imaging guidelines. Reviewed by: Rocío Ram MD on 04/25/2024 1:51 PM PDT Approved by: Rocío Ram MD on 04/25/2024 1:51 PM PDT Station ID: [id number]
[2024-04-25] MEDS: TENECTEPLASE 50 MG/10 ML VIAL IVP STA (14:26)
--- NOTE | 2024-04-25 14:30 | CT Report ---
PROCEDURE: Angio Head/Neck INDICATIONS: L sided weakness TECHNIQUE: After the administration of intravenous contrast, 1 mm thick sections acquired from the aortic arch t hrough the [place] of [place]. 3-dimensional kvtrrzq-dkwtkizti-cpqzqdnnvc (MIP) and/or volume renderin g reformats were acquired of the central intracranial vasculature and neck separately. For radiation dose reduction, the following was used: automated exposure control, adjustment of mA and/or kV acco rding to patient size. CONTRAST: 80ml omni 300 COMPARISON: CTA head 04/25/2024, 10/08/2016 FINDINGS: Image quality: Diagnostic. HEAD CT: See CT head report separately dictated from 04/25/2024. HEAD CT ANGIOGRAPHY: Anterior circulation: Moderate supraclinoid bilateral internal carotid artery stenosis is present. Th e flow within the paired anterior cerebral arteries is normal and symmetric. The flow within the mid dle cerebral arteries is normal and symmetric. The anterior communicating artery is seen. No aneury sms are seen. Posterior circulation: Visualized portions of the vertebral arteries demonstrate normal caliber, and join to form a normal appearing basilar artery. Calcifications with stenosis ranging from 50-70% is present within the distal vertebral arteries. No aneurysms are seen. NECK CT ANGIOGRAPHY: Carotid system: The great vessels demonstrate a conventional anatomy as they arise from the aortic a rch. The origins of the common carotid arteries appear patent. The common carotid arteries demonstr ate normal caliber and courses. The bifurcation regions are both widely patent. There is approximate 50% narrowing of the internal carotid arteries bilaterally. Posterior circulation: There is calcification at the origin of the left vertebral artery with approxi mately 50% stenosis.. The more superior extracranial portions of both vertebral arteries also demons trate normal courses and calibers. They join to form a normal appearing basilar artery. Soft tissues: Visualized neck soft tissues demonstrate no suspicious abnormalities. Mild to moderat e left effusion. There is appearance of intraluminal thrombus within the partially visualized distal aspect of the left main pulmonary artery. Bones: No suspicious bony lesions. Visualized cervical spine appears normally aligned. IMPRESSION: No areas of hemodynamically significant stenosis, vascular occlusion or aneurysmal dilation within th e anterior circulation. Areas of short segment stenosis within the distal vertebral arteries bilaterally secondary to atheros clerotic calcifications. Approximate 50% narrowing at the origin of the internal carotid arteries bilaterally. Moderate left pleural effusion with appearance of intraluminal thrombus at the visualized distal aspe ct of the left main pulmonary artery, not fully included within the field of view, consistent with em bolism. Follow-up CT chest is recommended. The above findings were discussed with Dr. Clay Christine on 04/25/2024 1:51 PM. The estimate of stenosis included in the report of the imaging study was calculated using the NASCET method Reviewed by: Rocío Ram MD on 04/25/2024 2:29 PM PDT Approved by: Rocío Ram MD on 04/25/2024 2:29 PM PDT Station ID: [id number]
[2024-04-25] MEDS ORDERED: iohexoL-300 100 ML VIAL ONE (14:31)
--- NOTE | 2024-04-25 15:28 | CT Report ---
PROCEDURE: Chest WO INDICATIONS: L PA PE TECHNIQUE: A CT scan of the chest was performed. Intravenous contrast media was not administered. Images were re corded and evaluated at appropriate window settings. Reformats: axial MIP of the chest, coronal and s agittal. For radiation dose reduction, the following was used: automated exposure control, adjustment of mA and/or kV according to patient size. COMPARISON: None. FINDINGS: Image quality: Diagnostic. Chest wall and lower neck: No thyroid nodule which requires sonographic follow up. No axillary or sup raclavicular adenopathy by size. Lungs and pleura: Moderate to large left pleural effusion with adjacent atelectasis versus consolidat ion. Trace right pleural effusion with adjacent atelectasis versus consolidation. Mild ground glass i s noted, may represent edema. No suspicious pulmonary nodules which require follow up. Mediastinum: Heart size is mildly enlarged. Severe coronary calcifications. No pericardial effusion. No large vessel abnormality. Atherosclerotic vascular desiccation. Mildly enlarged mediastinal lymph node measuring 1.3 cm in short axis (2/33). Bones: No aggressive osseous abnormality. Decreased osseous mineralization. Degenerative changes of t he spine in a pattern consistent with DISH. Median sternotomy wires. Upper Abdomen: Unremarkable. IMPRESSION: 1.Moderate to large left and trace right pleural effusions with adjacent atelectasis versus consolida tion. Mild groundglass is noted, may represent edema. 2.Mildly enlarged mediastinal lymph node measuring 1.3 cm. Differential includes reactive or malignan t and follow-up is recommended. 3.Severe coronary artery calcifications. Reviewed by: Mustapha Lincoln MD on 04/25/2024 2:26 PM PRAKASH Approved by: Mustapha Lincoln MD on 04/25/2024 2:26 PM AKDT Station ID: [id number]
[2024-04-25 16:06] VITALS: BP 178/95; O2SAT 99
[2024-04-25] MEDS: iohexoL-300 100 ML VIAL IVP ONE (17:14)
== END 2024-04-25 16:25 | disposition short-term general hospital (02) ==
LOC: EDUNIT# → ED 13:19
DX: I63.9 Cerebral infarction, unspecified (principal); I26.99 Other pulmonary embolism without acute cor pulmonale; E78.00 Pure hypercholesterolemia, unspecified; I25.10 Atherosclerotic heart disease of native coronary artery without angina pectoris; I48.0 Paroxysmal atrial fibrillation; E03.9 Hypothyroidism, unspecified; I13.0 Hypertensive heart and chronic kidney disease with heart failure and stage 1 through stage 4 chronic kidney disease, or unspecified chronic kidney disease; I50.32 Chronic diastolic (congestive) heart failure; N18.30 Chronic kidney disease, stage 3 unspecified; E11.22 Type 2 diabetes mellitus with diabetic chronic kidney disease; Z79.82 Long term (current) use of aspirin; Z79.899 Other long term (current) drug therapy; Z79.02 Long term (current) use of antithrombotics/antiplatelets; Z79.4 Long term (current) use of insulin
CPT/HCPCS: 36415; 37195; 70450; 70496; 70498; 71250; 80053; 83690; 85025; 85610; 85730; 93005; 99285; J3101; Q9967